=== PATIENT | male | born 1980 | race Caucasian/White ===

== ENCOUNTER 2017-12-11 10:08 | Day surgery (SDC) | payer OTHER ==
[2017-12-09 11:45] VITALS: BMI 35.4
[~2017-12-11 10:08] MED LIST: LACTATED RINGERS 1,000 ML IV SCH; LIDOCAINE 1% 20 ML VIAL (10MG/ML) FOR IV START INTRADERMA PRN; MIDAZOLAM 2 MG/2 ML VIAL IV PRN
[2017-12-11 12:38] VITALS: TEMP 98.3
[2017-12-11] MEDS ORDERED: PROPOFOL 10 MG/ML 20 ML VIAL IV ONE (13:41)
--- NOTE | 2017-12-11 13:58 | P.GSHP ---
History of Present Illness H&P Date: 12/11/17 Chief Complaint: Family history of colon Cancer This a 36-year-old male who presents today for colonoscopy.. Patient has a strong family history of colon cancer with his father having colon cancer. Patient presents today for colonoscopy, he has no significant GI complaints. Past Medical History Past Medical History: No Reported History History of Any Multi-Drug Resistant Organisms: None Reported Past Surgical History: No Surgical Hx Reported Past Anesthesia/Blood Transfusion Reactions: No Reported Reaction Additional Past Anesthesia/Blood Transfusion Reaction / Comment(s): FIRST ANESTHETIC Smoking Status: Former smoker - Past Family History Father Family Medical History: Cancer Additional Family Medical History / Comment(s): COLON CANCER Mother Family Medical History: Cancer Additional Family Medical History / Comment(s): BREAST CANCER Medications and Allergies Home Medications Medication Instructions Recorded Confirmed Type Cetirizine HCl [Zyrtec] 10 mg PO DAILY PRN 12/09/17 12/11/17 History Omeprazole [PriLOSEC] 20 mg PO DAILY PRN 12/09/17 12/11/17 History Allergies Allergy/AdvReac Type Severity Reaction Status Date / Time No Known Allergies Allergy Verified 12/11/17 12:23 Surgical - Exam Vital Signs Temp Pulse Resp BP Pulse Ox 98.3 F 77 14 131/92 98 12/11/17 12:37 12/11/17 12:37 12/11/17 12:37 12/11/17 12:37 12/11/17 12:37 - General well developed, no distress - Eyes PERRL - ENT normal pinna - Neck no masses - Respiratory normal expansion - Cardiovascular Rhythm: regular - Abdomen Abdomen: soft Assessment and Plan Assessment: Family history of colon Cancer. We'll perform colonoscopy.
--- NOTE | 2017-12-11 14:11 | P.OP ---
Date of Procedure: 12/11/17 Preoperative Diagnosis: Screening colonoscopy Family history: Cancer Postoperative Diagnosis: Normal colon Procedure(s) Performed: Colonoscopy Anesthesia: MAC Surgeon: Omega Jaramillo Pathology: none sent Condition: stable Disposition: PACU Description of Procedure: Normal colonoscopy
[2017-12-11 14:17] VITALS: RESP 16
[2017-12-11 14:32] VITALS: BP 132/95; PULSE 85
== END 2017-12-11 14:42 | disposition home or self-care (01) ==
LOC: ORWHC2ENDO 10:08
PROVIDERS: ATTEND Surgery
DX: Z12.11 Encounter for screening for malignant neoplasm of colon (principal); Z80.0 Family history of malignant neoplasm of digestive organs; K21.9 Gastro-esophageal reflux disease without esophagitis; Z79.899 Other long term (current) drug therapy; Z87.891 Personal history of nicotine dependence
CPT/HCPCS: J2704; G0105; 45378